=== PATIENT | male | born 1995 | race Caucasian/White ===

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

== ENCOUNTER → 2017-01-14 | Outpatient (CLI) | payer OTHER, BC | LOC: LAB 17:37 | DX: Z79.01 Long term (current) use of anticoagulants (principal); I35.9 Nonrheumatic aortic valve disorder, unspecified; Z95.2 Presence of prosthetic heart valve ==

== ENCOUNTER → 2017-02-02 | Outpatient (CLI) | payer OTHER, BC | LOC: LAB 13:03 | DX: I35.9 Nonrheumatic aortic valve disorder, unspecified (principal); Z95.2 Presence of prosthetic heart valve; Z79.01 Long term (current) use of anticoagulants; Z51.81 Encounter for therapeutic drug level monitoring ==